=== PATIENT | male | born 1985 | race Caucasian/White ===

== ENCOUNTER 2019-05-04 13:21 | Emergency (ER) | payer SELFPAY ==
[~2019-05-04] VITALS: Ht 170.2 cm; Wt 67.8 kg
[2019-05-04 14:20] VITALS: BP 93/66
== END 2019-05-04 14:34 | disposition home or self-care (01) ==
LOC: ED 14:25
DX: S92.251A Displaced fracture of navicular [scaphoid] of right foot, initial encounter for closed fracture (principal); F17.200 Nicotine dependence, unspecified, uncomplicated; V13.4XXA Pedal cycle driver injured in collision with car, pick-up truck or van in traffic accident, initial encounter; Y93.89 Activity, other specified; Y92.89 Other specified places as the place of occurrence of the external cause; Y99.8 Other external cause status
CPT/HCPCS: 29125; 99283